=== PATIENT | male | born 1995 | race American Indian/Alaskan Native ===

== ENCOUNTER 2024-10-21 11:05 | Emergency (ER) | payer BC ==
[2024-10-21] MEDS: fentaNYL 100 MCG/2 ML SDV IVPUSH ONE ×2 (11:45→12:38)
[2024-10-21] MEDS: Sodium Chloride 0.9% 10 ML Syringe FLUSH PRN (11:45)
[2024-10-21 11:46] LABS: BASOPHILS PERCENT AUTO 0.5 % (0.0-1.0); EOSINOPHILS PERCENT AUTO 0.7 % (1.0-3.0); HEMOGLOBIN 14.4 g/dL (14.0-18.0); LYMPHOCYTES PERCENT AUTO 26.1 % (20.5-50.1); MEAN CORPUSCULAR HEMOGLOBIN 27.7 pg (27.0-34.0); MEAN CORPUSCULAR HGB CONC 34.3 g/dL (33.0-35.0); MEAN CORPUSCULAR VOLUME 80.9 fL (80-100); MONOCYTES PERCENT AUTO 6.6 % (2-8); NEUTROPHILS PERCENT AUTO 66.1 % (42.2-75.2); PLATELET COUNT,PLT 292 10^3/uL (150-450); RED BLOOD CELL COUNT 5.19 10^6/uL (4.6-6.2); WHITE BLOOD CELL COUNT,WBC 7.6 10^3/uL (5.0-10.0)
[2024-10-21] MEDS: Lidocaine/Prilocaine 2.5-2.5% Crm 5 GM Tube TOP ONE (12:01)
[2024-10-21 12:07] LABS: LACTIC ACID 1.6 mmol/L (0.4-2.0)
[2024-10-21] MEDS: fentaNYL 100 MCG/2 ML SDV ONE (12:39)
[2024-10-21] MEDS: Lidocaine 1% 5 ML VIAL INJECT ONE (12:40)
== END 2024-10-21 13:22 | disposition home or self-care (01) ==
LOC: DL.ED 11:05
DX: L02.31 Cutaneous abscess of buttock (principal); L03.317 Cellulitis of buttock
CPT/HCPCS: 10060; 36415; 76857; 83605; 85025; 86140; 87040; 87070; 87077; 87186; 96374; 96376; 99284; A9270; J3010